=== PATIENT | male | born 1940 | race Hispanic/Latino ===

== ENCOUNTER 2022-05-26 09:03 | Inpatient (IN) | payer OTHER ==
[~2022-05-26] VITALS: Ht 162.6 cm; Wt 78.0 kg
[2022-05-27 12:48] LABS: BASOPHILS % (AUTO) 0.2 % (0.0-5.0); EOSINOPHILS % (AUTO) 2.6 % (0.0-8.0); LYMPHOCYTES % (AUTO) 29.1 % (21.0-51.0); MEAN CORPUSCULAR HEMOGLOBIN 30.6 pg (27.0-33.0); MEAN CORPUSCULAR HGB CONC 33.2 g/dL (32.0-36.0); MEAN CORPUSCULAR VOLUME 92.3 fL (79-99); MONOCYTES % (AUTO) 8.1 % (3.0-13.0); NEUTROPHILS % (AUTO) 59.8 % (40.0-77.0); PLATELET COUNT (AUTO) 172 K/uL (130-400); RED BLOOD CELL COUNT(AUTO) 4.44 MIL/uL (4.50-6.20); WHITE BLOOD COUNT (AUTO) 5.1 K/uL (4.8-10.8)
[2022-05-27 12:54] LABS: CREATININE 1.1 mg/dL (0.5-1.5); POTASSIUM 4.6 mmol/L (3.5-5.1)
[2022-05-27 13:04] LABS: INR 0.94 (0.85-1.15); PROTHROMBIN TIME 10.3 SEC (9.6-11.6)
[2022-05-27 13:05] LABS: PARTIAL THROMBOPLASTIN TIME 26.1 SEC (26.3-35.5)
[2022-05-27 13:24] VITALS: BP 122/55
[2022-05-27] MEDS ORDERED: LISI10TA24 PO (13:39)
[2022-05-27] MEDS ORDERED: OMEG-148 PO (13:39)
[2022-05-27] MEDS ORDERED: AEC81 PO (13:39)
[2022-05-27] MEDS ORDERED: TAMS-1 PO (13:39)
[2022-05-27] MEDS ORDERED: ATOR40TA69 PO (13:39)
[2022-05-27] MEDS ORDERED: METF-444 PO (13:39)
[2022-06-02] VITALS (19 sets, daily range): BP systolic 119–184; BP diastolic 57–138
[2022-06-02] MEDS ORDERED: 0.9%NACL 1000ML 1,000 ML IV ONE (09:20)
[2022-06-02] MEDS: CEFAZOLIN SODIUM 2 GM VIAL ONE ×2 (09:33→15:40)
[2022-06-02] MEDS ORDERED: TRANEXAMIC ACID 1000MG/10ML ONE (13:07)
[2022-06-02] MEDS ORDERED: LIDOCAINE PF 100MG/5ML (2%) SYRINGE 5ML ONE (15:19)
[2022-06-02] MEDS ORDERED: SUCCINYLCHOLINE 200MG/10ML SYR ONE (15:19)
[2022-06-02] MEDS ORDERED: ONDANSETRON 4MG INJ ONE (15:20)
[2022-06-02] MEDS ORDERED: GLYCOPYRROLATE 1 MG/5 ML SYRINGE ONE (15:20)
[2022-06-02] MEDS ORDERED: ROCURONIUM 10MG/1ML SYR 10 MG/ML ML ONE (15:20)
[2022-06-02] MEDS ORDERED: MIDAZOLAM HCL 1 MG/ML 2ML VIAL ONE (15:20)
[2022-06-02] MEDS ORDERED: PROPOFOL 10 MG/ML 20ML VIAL IV ONE (15:20)
[2022-06-02] MEDS ORDERED: DEXAMETHASONE SOD PHOSPHATE 10MG/ML 1ML VIAL ONE (15:20)
[2022-06-02] MEDS ORDERED: NEOSTIGMINE 5MG/5ML SYR IV ONE (15:20)
[2022-06-02] MEDS ORDERED: FENTANYL CITRATE PF 50 MCG/1 ML 2ML VIAL ONE ×2 (15:23→16:07)
[2022-06-02] MEDS ORDERED: TRANEXAMIC ACID 1000MG/10ML IV ONE (15:50)
[2022-06-02] MEDS ORDERED: HYDROCODONE/ACETAMINOPHEN 10/325 MG TAB PO PRN (16:00)
[2022-06-02] MEDS ORDERED: LIDOCAINE HCL-MPF 1% 2ML VIAL IV PRN (16:00)
[2022-06-02] MEDS ORDERED: HYDROCODONE/ACETAMINOPHEN 5/325 MG TAB PO PRN (16:00)
[2022-06-02] MEDS ORDERED: ONDANSETRON 4MG INJ IVP PRN (16:00)
[2022-06-02] MEDS ORDERED: POTASSIUM CHLORIDE 20MEQ/100ML 100 ML IV PRN (16:00)
[2022-06-02] MEDS: 0.9%NACL 1000ML 1,000 ML IV SCH (16:00)
[2022-06-02] MEDS ORDERED: POTASSIUM CHLORIDE 10% ELIXIR 20 MEQ/15 ML UDCUP PO PRN (16:00)
[2022-06-02] MEDS ORDERED: KCL 20 MEQ ERTAB PO PRN (16:00)
[2022-06-02] MEDS ORDERED: EPHEDRINE SULFATE 50 MG/ML AMPULE ONE (16:06)
[2022-06-02] MEDS: INSULIN HUMULIN R 100 UNIT/ML 3ML SQ SCH ×2 (16:30→20:13)
[2022-06-02] MEDS ORDERED: MEPERIDINE-PF 25 MG/ML SYG ONE ×4 (17:14→19:00)
[2022-06-02] MEDS: ACETAMINOPHEN 1,000 MG/100 ML VIAL IV SCH ×2 (18:49→22:43)
[2022-06-02] MEDS: MORPHINE 4 MG SYG IVP PRN (20:10)
[2022-06-02] MEDS: FAMOTIDINE 20MG TAB PO SCH (20:10)
[2022-06-02] MEDS: ASPIRIN 81 MG EC TAB PO SCH (20:11)
[2022-06-02] MEDS: CEFAZOLIN SODIUM 1 GM VIAL IVP SCH (20:11)
[2022-06-02] MEDS: METFORMIN HCL 500 MG TABLET PO SCH (20:11)
[2022-06-02] MEDS: IBUPROFEN 800MG + NS 250ML IV SCH (20:59)
[2022-06-02] MEDS ORDERED: TAMSULOSIN HCL 0.4 MG CAP.ER.24H PO SCH (21:00)
[2022-06-03] MEDS: 0.9%NACL 1000ML 1,000 ML IV SCH ×2 (02:00→11:31)
[2022-06-03] MEDS: IBUPROFEN 800MG + NS 250ML IV SCH ×2 (02:53→11:13)
[2022-06-03] MEDS: ACETAMINOPHEN 1,000 MG/100 ML VIAL IV SCH (04:00)
[2022-06-03 04:40] VITALS: BP 158/76
[2022-06-03 05:03] LABS: HEMATOCRIT 40.6 % (42-54); MEAN CORPUSCULAR HEMOGLOBIN 30.2 pg (27.0-33.0); MEAN CORPUSCULAR HGB CONC 33.3 g/dL (32.0-36.0); MEAN CORPUSCULAR VOLUME 90.8 fL (79-99); RED BLOOD CELL COUNT(AUTO) 4.47 MIL/uL (4.50-6.20); RED CELL DISTRIBUTION WIDTH 12.6 % (11.0-15.5); WHITE BLOOD COUNT (AUTO) 10.4 K/uL (4.8-10.8)
[2022-06-03 05:21] LABS: CREATININE 1.2 mg/dL (0.5-1.5); POTASSIUM 5.2 mmol/L (3.5-5.1)
[2022-06-03] MEDS: INSULIN HUMULIN R 100 UNIT/ML 3ML SQ SCH ×3 (05:35→16:30)
[2022-06-03] MEDS: CEFAZOLIN SODIUM 1 GM VIAL IVP SCH (05:55)
[2022-06-03 08:14] VITALS: BP 132/64
[2022-06-03] MEDS: MORPHINE 4 MG SYG IVP PRN (08:41)
[2022-06-03] MEDS ORDERED: LISINOPRIL 10 MG TABLET PO SCH (09:00)
[2022-06-03] MEDS ORDERED: POLYETHYLENE GLYCOL 3350 17 GM POWD.PACK PO SCH (09:00)
[2022-06-03] MEDS: ASPIRIN 81 MG EC TAB PO SCH (09:41)
[2022-06-03] MEDS: METFORMIN HCL 500 MG TABLET PO SCH (09:41)
[2022-06-03] MEDS: FAMOTIDINE 20MG TAB PO SCH (09:41)
[2022-06-03 11:06] VITALS: BP 145/64
[2022-06-03 16:31] VITALS: BP 102/42
[2022-06-05] MEDS ORDERED: BISACODYL 10 MG SUPP.RECT RC PRN (16:00)
== END 2022-06-03 17:30 | disposition home or self-care (01) | DRG 468 ==
LOC: DAHIP 06-02 08:23 → 4CH 06-02 19:30
PROVIDERS: ADMIT Orthopaedic Surgery; ATTEND Orthopaedic Surgery
PROC: 0SPD0LZ Removal of Medial Unicondylar Synthetic Substitute from Left Knee Joint, Open Approach (ICD-10-PCS; 2022-06-02)
PROC: 8E0YXCZ Robotic Assisted Procedure of Lower Extremity (ICD-10-PCS; 2022-06-02)
PROC: 0SRD0J9 Replacement of Left Knee Joint with Synthetic Substitute, Cemented, Open Approach (ICD-10-PCS; principal; 2022-06-02 16:11)
DX: T84.89XA Other specified complication of internal orthopedic prosthetic devices, implants and grafts, initial encounter (principal); X58.XXXA Exposure to other specified factors, initial encounter; Z20.822 Contact with and (suspected) exposure to COVID-19
CPT/HCPCS: 36415; 73562; 80048; 82948; 85025; 85027; 85610; 85730; 87070; 87076; 87426; 93926; 97039; G0378; J0330; J0690; J1100; J1741; J2001; J2175; J2250; J2270; J2405; J2704; J2710; J3010; J3490; J7030